=== PATIENT | female | born 2000 | race African-American/Black ===

== ENCOUNTER 2023-06-30 20:39 | Emergency (ER) | payer MEDICAID, OTHER ==
[~2023-06-30] VITALS: Ht 177.8 cm; Wt 82.0 kg
[2023-06-30 20:51] VITALS: O2SAT 96
[2023-06-30] MEDS ORDERED: KETOROLAC 15MG/ML VIAL IM ONE (22:30)
[2023-06-30] MEDS ORDERED: NAPR-1176 MT (22:48)
[2023-06-30 22:59] VITALS: BP 99/59; PULSE 79; RESP 18; TEMP 98.7
== END 2023-06-30 23:01 | disposition home or self-care (01) ==
LOC: ER 20:39
DX: S00.83XA Contusion of other part of head, initial encounter (principal); J45.909 Unspecified asthma, uncomplicated; X58.XXXA Exposure to other specified factors, initial encounter; Y93.89 Activity, other specified; Y92.89 Other specified places as the place of occurrence of the external cause; Y99.8 Other external cause status
CPT/HCPCS: 99283; 81025; 96372; J1885